=== PATIENT | male | born 1965 | race Caucasian/White ===

== ENCOUNTER → 2019-12-04 | Outpatient (CLI) | payer OTHER | END | disposition home or self-care (01) | LOC: RAD 18:08 | PROVIDERS: ATTEND Nurse Practitioner Family | DX: K40.90 Unilateral inguinal hernia, without obstruction or gangrene, not specified as recurrent (principal); N50.811 Right testicular pain | CPT/HCPCS: 76870; 93975 ==

== ENCOUNTER 2019-12-06 11:41 | Emergency (ER) | payer OTHER ==
[~2019-12-06] VITALS: Ht 188 cm; Wt 85.7 kg
[2019-12-06 11:58] VITALS: BP 110/68
[2019-12-06 12:36] LABS: BASOPHILS # (AUTO) 0.03 x10^3/uL (0-0.1); BASOPHILS % (AUTO) 0 % (0-1); EOSINOPHILS # (AUTO) 0.14 x10^3/uL (0-0.4); EOSINOPHILS % (AUTO) 2 % (1-7); LYMPHOCYTES # (AUTO) 1.87 x10^3/uL (1-3.4); LYMPHOCYTES % (AUTO) 24 % (22-44); MD NO; MEAN CORPUSCULAR HEMOGLOBIN 30.2 pg (27.5-34.5); MEAN CORPUSCULAR HGB CONC 33.7 g/dL (33.2-36.2); MEAN CORPUSCULAR VOLUME 89.5 fL (81-97); MEAN PLATELET VOLUME 8.2 fL (7.4-10.4); MONOCYTES # (AUTO) 0.52 x10^3/uL (0.2-0.8); MONOCYTES % (AUTO) 7 % (2-9); NEUTROPHILS # (AUTO) 5.16 x10^3/uL (1.8-6.8); NEUTROPHILS % (AUTO) 67 % (42-75); PLATELET COUNT 256 x10^3/uL (130-400); RED BLOOD COUNT 5.05 x10^6/uL (4.38-5.82); RED CELL DISTRIBUTION WIDTH 12.6 % (9.4-14.8)
[2019-12-06 12:49] LABS: ANION GAP 5 mmol/L (5-15); CALCIUM 8.8 mg/dL (8.5-10.1); CHLORIDE 110 mmol/L (98-107)
[2019-12-06 12:53] LABS: ALANINE AMINOTRANSFERASE 17 U/L (12-78); ALKALINE PHOSPHATASE 33 U/L (45-117); BILIRUBIN,TOTAL 0.8 mg/dL (0.2-1.0); CREATININE 0.76 mg/dL (0.7-1.3); TOTAL PROTEIN 7.1 g/dL (6.4-8.2)
--- NOTE | 2019-12-06 12:59 | NUR ---
TO ROOM FROM LOBBY. NAD.
--- NOTE | 2019-12-06 13:17 | NUR ---
ERP IN TO SEE. URINE COLLECTED/SENT TO LAB. CALL LIGHT WITHIN REACH.
[2019-12-06 13:25] LABS: MICROSCOPIC NOT IND
== END 2019-12-06 14:00 | disposition home or self-care (01) ==
LOC: ED 13:49
DX: K40.90 Unilateral inguinal hernia, without obstruction or gangrene, not specified as recurrent (principal); R10.32 Left lower quadrant pain
CPT/HCPCS: 36415; 80053; 81003; 83690; 85025; 99283

== ENCOUNTER → 2020-01-08 | Outpatient (CLI) | payer OTHER ==
[~2020-01-08] MED LIST: ASPI-496 PO; INSU100I32 SQ; LISI-167 PO; SEMA1PEN SQ; SILD20TA PO
== END | disposition home or self-care (01) ==
LOC: STAR 09:16
PROVIDERS: ATTEND Colon & Rectal Surgery
DX: Z01.818 Encounter for other preprocedural examination (principal); Z11.59 Encounter for screening for other viral diseases; K40.90 Unilateral inguinal hernia, without obstruction or gangrene, not specified as recurrent; I45.6 Pre-excitation syndrome
CPT/HCPCS: 36415; 87635; 93005

== ENCOUNTER 2020-01-12 07:25 | Day surgery (SDC) | payer OTHER ==
[~2020-01-12] VITALS: Ht 188 cm; Wt 82.2 kg
[~2020-01-12 07:25] MED LIST changes: +BUPIVACAINE/PF-EPI 0.5% 1:200K ONE
[2020-01-12] MEDS ORDERED: CHLORHEXIDINE 15 ML UDC MM STA (07:44)
[2020-01-12] MEDS ORDERED: LACTATED RINGERS 1,000 ML IV SCH (07:44)
[2020-01-12 07:45] VITALS: BP 119/80
[2020-01-12] MEDS ORDERED: MIDAZOLAM 1 MG/ML, 2ML ONE (08:13)
[2020-01-12] MEDS ORDERED: FENTANYL PF 250 MCG/5ML ONE (08:14)
[2020-01-12] MEDS ORDERED: SUGAMMADEX 200 MG/2 ML IVPush ONE (08:58)
[2020-01-12] MEDS ORDERED: KETOROLAC 30 MG/1 ML ONE (08:58)
[2020-01-12] MEDS ORDERED: BUPIVACAINE/PF-EPI 0.5% 1:200K INFIL ONE (09:10)
[2020-01-12] MEDS ORDERED: ONDANSETRON 2MG/ML, 2ML ONE (09:26)
[2020-01-12] MEDS ORDERED: GLYCOPYRROLATE 0.2MG/1ML, 5ML ONE (09:26)
[2020-01-12] MEDS ORDERED: PROPOFOL 10 MG/ML, 20ML ONE (09:26)
[2020-01-12] MEDS ORDERED: DEXAMETHASONE 4 MG/ML, 1ML ONE (09:26)
[2020-01-12] MEDS ORDERED: ROCURONIUM 10MG/ML,5ML ONE (09:26)
[2020-01-12] MEDS ORDERED: CEFAZOLIN 1,000 MG ONE (09:26)
[2020-01-12] MEDS ORDERED: NEOSTIGMINE 1 MG/ML, 10ML ONE (09:26)
[2020-01-12] MEDS ORDERED: PROMETHAZINE 25 MG/ML, 1ML IVPush PRN (09:30)
[2020-01-12] MEDS ORDERED: MEPERIDINE/PF 25MG/0.5ML IVPush PRN (09:30)
[2020-01-12] MEDS ORDERED: LORazepam 2 MG/ML, 1ML IVPush PRN (09:30)
[2020-01-12] MEDS ORDERED: LABETALOL 5MG/ML, 20ML IV PRN (09:30)
[2020-01-12] MEDS ORDERED: ACETAMINOPHEN 325 MG TABLET PO PRN (09:30)
[2020-01-12] MEDS ORDERED: ALBUTEROL SULFATE 2.5 MG/3 ML NPPB PRN (09:30)
[2020-01-12] MEDS ORDERED: OXYcodone 5 MG/5 ML ORAL.SOL UDC PO PRN (09:30)
[2020-01-12] MEDS ORDERED: METHOCARBAMOL 1,000 MG in DEXTROSE 5% 100 ML IV PRN (09:30)
[2020-01-12] MEDS ORDERED: hydrALAzine 20 MG/ML, 1ML IV PRN (09:30)
[2020-01-12] MEDS ORDERED: HYDROmorphone 1 MG/ML, 1ML INJ IVPush PRN (09:30)
[2020-01-12] MEDS: FENTANYL PF 100 MCG/2ML IV PRN ×2 (09:56→10:05)
[2020-01-12] MEDS ORDERED: FENTANYL PF 100 MCG/2ML ONE (09:56)
[2020-01-12] MEDS ORDERED: OXYcodone 5 MG/5 ML ORAL.SOL UDC ONE (09:57)
== END 2020-01-12 11:30 | disposition home or self-care (01) ==
LOC: OUT 07:25
PROVIDERS: ATTEND Colon & Rectal Surgery
DX: K40.90 Unilateral inguinal hernia, without obstruction or gangrene, not specified as recurrent (principal); E11.9 Type 2 diabetes mellitus without complications; I10 Essential (primary) hypertension; F17.210 Nicotine dependence, cigarettes, uncomplicated; Z79.82 Long term (current) use of aspirin; Z79.4 Long term (current) use of insulin; Z79.899 Other long term (current) drug therapy
CPT/HCPCS: 49650; 82962; C1727; C1781; J0690; J1100; J1885; J2250; J2405; J2704; J2710; J3010; J7120